=== PATIENT | female | born 1940 | race Hispanic/Latino ===

== ENCOUNTER → 2018-05-13 | Outpatient (CLI) | payer OTHER ==
[~2018-05-13] MED LIST: ASPI-1012 PO; CETI10CA5 PO; DICL50TA9 PO; FLUO-126 PO; LEVO88TA7 PO; LORA0.5T2 PO; METF-444 PO; METO50TA18 PO; MYRBETRIQ PO; ROSU10TA27 PO
== END | disposition home or self-care (01) ==
LOC: RAH 15:54
PROVIDERS: ATTEND Physical Medicine & Rehabilitation
DX: M17.12 Unilateral primary osteoarthritis, left knee (principal)
CPT/HCPCS: 73562

== ENCOUNTER → 2018-06-06 | Outpatient (CLI) | payer OTHER | END | disposition home or self-care (01) | LOC: RAH 13:53 | PROVIDERS: ATTEND Physical Medicine & Rehabilitation | DX: M25.462 Effusion, left knee (principal); M71.22 Synovial cyst of popliteal space [Baker], left knee | CPT/HCPCS: 73721 ==

== ENCOUNTER → 2018-06-19 | Outpatient (CLI) | payer OTHER | END | disposition home or self-care (01) | LOC: RAH 14:36 | PROVIDERS: ATTEND Physical Medicine & Rehabilitation | DX: R60.0 Localized edema (principal); E11.9 Type 2 diabetes mellitus without complications | CPT/HCPCS: 93971 ==

== ENCOUNTER 2018-10-20 14:35 | Emergency (ER) | payer OTHER ==
[2018-10-20] MEDS ORDERED: LIDOCAINE HCL 1% 20 ML VIAL ONE (15:01)
[2018-10-20] MEDS ORDERED: TETANUS/DIPHTHERIA TOXOID [ADULT] 0.5 ML VIAL IM ONE (15:27)
== END 2018-10-20 15:49 | disposition home or self-care (01) ==
LOC: EDH 14:35
DX: S61.012A Laceration without foreign body of left thumb without damage to nail, initial encounter (principal); E11.9 Type 2 diabetes mellitus without complications; I10 Essential (primary) hypertension; E07.9 Disorder of thyroid, unspecified; Z90.710 Acquired absence of both cervix and uterus; Z98.890 Other specified postprocedural states; W26.0XXA Contact with knife, initial encounter; Y93.G3 Activity, cooking and baking; Y92.098 Other place in other non-institutional residence as the place of occurrence of the external cause; Y99.8 Other external cause status
CPT/HCPCS: 12001; 90471; 90714

== ENCOUNTER → 2019-02-26 | Outpatient (CLI) | payer OTHER ==
[~2019-02-26] MED LIST changes: -ROSU10TA27 PO; +ROSU10TA28 PO
== END | disposition home or self-care (01) ==
LOC: RAH 09:43
PROVIDERS: ATTEND Internal Medicine
DX: K21.9 Gastro-esophageal reflux disease without esophagitis (principal); K44.9 Diaphragmatic hernia without obstruction or gangrene; K22.4 Dyskinesia of esophagus
CPT/HCPCS: 74240

== ENCOUNTER → 2019-04-02 | Outpatient (CLI) | payer OTHER | END | disposition home or self-care (01) | LOC: RAH 14:08 | PROVIDERS: ATTEND Physical Medicine & Rehabilitation | DX: M47.26 Other spondylosis with radiculopathy, lumbar region (principal); M48.061 Spinal stenosis, lumbar region without neurogenic claudication | CPT/HCPCS: 72131 ==

== ENCOUNTER → 2019-07-28 | Outpatient (CLI) | payer OTHER ==
[~2019-07-28] MED LIST changes: -FLUO-126 PO; +FLUO20CA34 PO
== END | disposition home or self-care (01) ==
LOC: RAH 10:00
PROVIDERS: ATTEND Physical Medicine & Rehabilitation
DX: M47.812 Spondylosis without myelopathy or radiculopathy, cervical region (principal); M25.78 Osteophyte, vertebrae; M48.02 Spinal stenosis, cervical region
CPT/HCPCS: 72125

== ENCOUNTER → 2020-04-06 | Outpatient (CLI) | payer OTHER ==
[~2020-04-06] MED LIST changes: -FLUO20CA34 PO; +FLUO20CA35 PO; +SINCALIDE 5 MCG ML VIAL IV ONE
== END | disposition home or self-care (01) ==
LOC: RAH 11:26
PROVIDERS: ATTEND Internal Medicine
DX: R10.10 Upper abdominal pain, unspecified (principal); R10.9 Unspecified abdominal pain; R14.0 Abdominal distension (gaseous)
CPT/HCPCS: 78227; A9537; J2805

== ENCOUNTER 2021-06-20 13:34 | Emergency (ER) | payer MEDICARE ==
[~2021-06-20] VITALS: Ht 160 cm; Wt 113.4 kg
[~2021-06-20 13:34] MED LIST changes: -FLUO20CA35 PO; +FLUO20CA36 PO; -SINCALIDE 5 MCG ML VIAL IV ONE
[2021-06-20 14:22] LABS: APPEARANCE,URINE Clear (CLEAR); BILIRUBIN,URINE Negative (NEGATIVE); COLOR,URINE Yellow (YELLOW); GLUCOSE, URINE (UA) Negative (NEGATIVE); KETONES,URINE Negative (NEGATIVE); LEUKOCYTE ESTERASE ,URINE Moderate (NEGATIVE); NITRATE,URINE Negative (NEGATIVE); OCCULT BLOOD,URINE Negative (NEGATIVE); PROTEIN,URINE Negative (NEGATIVE); UROBILINOGEN,URINE 0.2 mg/dL (0.2-1.0)
[2021-06-20 14:27] LABS: BASOPHILS % (AUTO) 1.1 % (0.0-5.0); EOSINOPHILS % (AUTO) 1.5 % (0.0-8.0); HEMATOCRIT 41.6 % (36-48); MEAN CORPUSCULAR HEMOGLOBIN 29.7 pg (27.0-33.0); MEAN CORPUSCULAR HGB CONC 33.4 g/dL (32.0-36.0); MEAN CORPUSCULAR VOLUME 88.9 fL (79-99); MONOCYTES % (AUTO) 10.4 % (3.0-13.0); NEUTROPHILS % (AUTO) 58.7 % (40.0-77.0); PLATELET COUNT (AUTO) 246 K/uL (130-400); RED BLOOD CELL COUNT(AUTO) 4.68 MIL/uL (4.00-5.50); RED CELL DISTRIBUTION WIDTH 14.4 % (11.0-15.5); WHITE BLOOD COUNT (AUTO) 7.3 K/uL (4.8-10.8)
[2021-06-20] MEDS ORDERED: ASPIRIN 325MG TAB PO ONE (14:30)
[2021-06-20 14:36] LABS: CREATININE 0.8 mg/dL (0.5-1.5)
[2021-06-20 14:40] LABS: ALBUMIN 3.9 g/dL (3.5-5.0); BILIRUBIN,TOTAL 0.5 mg/dL (0.2-1.0); TOTAL PROTEIN, SERUM 7.5 g/dL (6.0-8.3)
[2021-06-20 14:44] LABS: BACTERIA,URINE Few /HPF (None Seen); RBC,URINE 0-1 /HPF (0-1); SQUAMOUS EPITHELIAL CELL,UR Few /HPF (0-2)
[2021-06-20 14:45] LABS: TRANSITIONAL EPI CELLS,URINE Rare /HPF (None Seen)
[2021-06-20] MEDS ORDERED: LORA0.5T83 PO (16:00)
[2021-06-20] MEDS ORDERED: MACR100 PO (16:04)
[2021-06-20 16:14] VITALS: BP 134/50
== END 2021-06-20 16:36 | disposition home or self-care (01) ==
LOC: EDH 13:34
DX: F41.9 Anxiety disorder, unspecified (principal); N39.0 Urinary tract infection, site not specified; R06.00 Dyspnea, unspecified; I10 Essential (primary) hypertension; E03.9 Hypothyroidism, unspecified; Z79.82 Long term (current) use of aspirin; Z79.899 Other long term (current) drug therapy; Z90.710 Acquired absence of both cervix and uterus
CPT/HCPCS: 36415; 71045; 80053; 81001; 83735; 83880; 84443; 84484; 85025; 87077; 87088; 87186; 93005

== ENCOUNTER → 2022-01-03 | Outpatient (CLI) | payer MEDICARE ==
[~2022-01-03] MED LIST changes: +AEC81 PO; +ALBU0.63 IH; -ASPI-1012 PO; +BUDE10.2 IH; -CETI10CA5 PO; +CLOP75TA14 PO; +CYAN250010 PO; -DICL50TA9 PO; -FLUO20CA36 PO; +FLUT15.845 NS; +LEVO150 PO; -LEVO88TA7 PO; -LORA0.5T2 PO; +LORA10TA7 PO; +LOSA25TA41 PO; +MULT-1367 PO; +MV-M1TAB20 PO; -MYRBETRIQ PO; +PANT40TA54 PO; -ROSU10TA28 PO; +ROSU5TAB12 PO; +VITA1CAP PO
== END | disposition home or self-care (01) ==
LOC: SHCH 11:27
PROVIDERS: ATTEND Internal Medicine Cardiovascular Disease
DX: I65.23 Occlusion and stenosis of bilateral carotid arteries (principal)
CPT/HCPCS: 93880

== ENCOUNTER 2022-05-22 21:54 | Emergency (ER) | payer MEDICARE ==
[~2022-05-22 21:54] MED LIST changes: +CLOP-31 PO; -CLOP75TA14 PO
[2022-05-22] MEDS ORDERED: DIAZEPAM 2 MG TAB PO ONE (23:00)
[2022-05-22] MEDS ORDERED: MORPHINE 4 MG SYG IVP ONE (23:00)
[2022-05-22 23:21] LABS: BASOPHILS % (AUTO) 0.8 % (0.0-5.0); EOSINOPHILS % (AUTO) 0.1 % (0.0-8.0); HEMATOCRIT 40.2 % (36-48); LYMPHOCYTES % (AUTO) 12.6 % (21.0-51.0); MEAN CORPUSCULAR HEMOGLOBIN 29.4 pg (27.0-33.0); MEAN CORPUSCULAR HGB CONC 33.8 g/dL (32.0-36.0); NEUTROPHILS % (AUTO) 84.2 % (40.0-77.0); PLATELET COUNT (AUTO) 303 K/uL (130-400); RED BLOOD CELL COUNT(AUTO) 4.62 MIL/uL (4.00-5.50); RED CELL DISTRIBUTION WIDTH 13.3 % (11.0-15.5); WHITE BLOOD COUNT (AUTO) 8.8 K/uL (4.8-10.8)
[2022-05-22 23:29] LABS: CREATININE 0.9 mg/dL (0.5-1.5); POTASSIUM 3.8 mmol/L (3.5-5.1)
[2022-05-22 23:34] LABS: ALBUMIN 3.8 g/dL (3.5-5.0); TOTAL PROTEIN, SERUM 7.9 g/dL (6.0-8.3)
[2022-05-23] MEDS ORDERED: LIDOCAINE 5% TOPICAL PATCH TP ONE (02:30)
[2022-05-23] MEDS ORDERED: KETOROLAC 15MG/ML VIAL (15MG/ML) IV ONE (02:30)
[2022-05-23 03:48] VITALS: BP 136/81
[2022-05-23] MEDS ORDERED: DIAZ2TAB PO (04:36)
[2022-05-23] MEDS ORDERED: ACET-2079 PO (04:36)
== END 2022-05-23 04:50 | disposition home or self-care (01) ==
LOC: EDH 21:54
DX: S33.6XXA Sprain of sacroiliac joint, initial encounter (principal); M25.552 Pain in left hip; E03.9 Hypothyroidism, unspecified; E11.9 Type 2 diabetes mellitus without complications; E78.00 Pure hypercholesterolemia, unspecified; I10 Essential (primary) hypertension; Z79.51 Long term (current) use of inhaled steroids; Z79.82 Long term (current) use of aspirin; Z79.84 Long term (current) use of oral hypoglycemic drugs; Z88.8 Allergy status to other drugs, medicaments and biological substances; X58.XXXA Exposure to other specified factors, initial encounter; Y93.89 Activity, other specified; Y92.89 Other specified places as the place of occurrence of the external cause; Y99.8 Other external cause status
CPT/HCPCS: 36415; 72192; 73501; 80053; 85025; 96374; 96375; J1885; J2270

== ENCOUNTER → 2022-10-05 | Outpatient (CLI) | payer MEDICARE ==
[~2022-10-05] MED LIST changes: +ACET-2079 PO; +DIAZ2TAB PO
== END | disposition home or self-care (01) ==
LOC: RAH 15:54
PROVIDERS: ATTEND Physician Assistant
DX: M47.817 Spondylosis without myelopathy or radiculopathy, lumbosacral region (principal); M17.0 Bilateral primary osteoarthritis of knee; M48.061 Spinal stenosis, lumbar region without neurogenic claudication; M25.78 Osteophyte, vertebrae; M25.752 Osteophyte, left hip
CPT/HCPCS: 72110; 73502

== ENCOUNTER → 2023-04-03 | Outpatient (CLI) | payer MEDICARE ==
[2023-04-03 16:21] LABS: CREATININE 0.8 mg/dL (0.5-1.5); POTASSIUM 4.6 mmol/L (3.5-5.1)
== END | disposition home or self-care (01) ==
LOC: LAB 11:59
PROVIDERS: ATTEND Internal Medicine Cardiovascular Disease
DX: I10 Essential (primary) hypertension (principal); I25.10 Atherosclerotic heart disease of native coronary artery without angina pectoris
CPT/HCPCS: 36415; 80048

== ENCOUNTER → 2023-04-05 | Outpatient (CLI) | payer MEDICARE ==
[~2023-04-05] MED LIST changes: +IOHEXOL 350 MG/ML 100ML INFUS..BTL IV ONE; +METOPROLOL TARTRATE 1 MG/ML 5ML VIAL IV ONE
== END | disposition home or self-care (01) ==
LOC: RAH 10:19
PROVIDERS: ATTEND Internal Medicine Cardiovascular Disease
DX: I25.10 Atherosclerotic heart disease of native coronary artery without angina pectoris (principal); I10 Essential (primary) hypertension; M47.815 Spondylosis without myelopathy or radiculopathy, thoracolumbar region; J84.10 Pulmonary fibrosis, unspecified
CPT/HCPCS: 75574; J3490; Q9967

== ENCOUNTER 2023-06-18 06:04 | Day surgery (SDC) | payer MEDICARE ==
[2023-06-13 12:43] LABS: BASOPHILS # (AUTO) 0.09 K/uL (0.00-0.20); BASOPHILS % (AUTO) 1.4 % (0.0-5.0); EOSINOPHILS # (AUTO) 0.15 K/uL (0.00-0.70); EOSINOPHILS % (AUTO) 2.3 % (0.0-8.0); HEMATOCRIT 41.8 % (36-48); IMMATURE GRANULOCYTE ABSOLUTE 0.03 K/uL (0-1); LYMPHOCYTES # (AUTO) 1.8 K/uL (1.0-4.8); LYMPHOCYTES % (AUTO) 27.8 % (21.0-51.0); MEAN CORPUSCULAR HEMOGLOBIN 30.7 pg (27.0-33.0); MEAN CORPUSCULAR HGB CONC 32.8 g/dL (32.0-36.0); MEAN CORPUSCULAR VOLUME 93.7 fL (79-99); MONOCYTES # (AUTO) 0.5 K/uL (0.1-1.0); MONOCYTES % (AUTO) 7.3 % (3.0-13.0); NEUTROPHILS % (AUTO) 60.7 % (40.0-77.0); PLATELET COUNT (AUTO) 240 K/uL (130-400); RED BLOOD CELL COUNT(AUTO) 4.46 MIL/uL (4.00-5.50); RED CELL DISTRIBUTION WIDTH 14.4 % (11.0-15.5); WHITE BLOOD COUNT (AUTO) 6.6 K/uL (4.8-10.8)
[2023-06-13 12:45] VITALS: BP 134/61; PULSE 61; RESP 18
[2023-06-13 12:53] LABS: INR 0.94 (0.85-1.15); PROTHROMBIN TIME 10.9 SEC (9.6-11.6)
[2023-06-13 12:55] LABS: PARTIAL THROMBOPLASTIN TIME 27.1 SEC (26.3-35.5)
[2023-06-13 12:56] LABS: CREATININE 0.8 mg/dL (0.5-1.5); POTASSIUM 4.4 mmol/L (3.5-5.1)
[2023-06-13 13:14] LABS: B-TYPE NATRIURETIC PEPTIDE 73 pg/mL (0-100)
[2023-06-13 13:32] LABS: APPEARANCE,URINE CLEAR (CLEAR); BILIRUBIN,URINE NEGATIVE (NEGATIVE); COLOR,URINE LIGHT-YELLOW (YELLOW); GLUCOSE, URINE (UA) NEGATIVE (NEGATIVE); KETONES,URINE NEGATIVE (NEGATIVE); LEUKOCYTE ESTERASE ,URINE 25 Leu/uL (NEGATIVE); NITRATE,URINE NEGATIVE (NEGATIVE); OCCULT BLOOD,URINE NEGATIVE (NEGATIVE); PH,URINE 5.5 (5.0-8.0); PROTEIN,URINE NEGATIVE (NEGATIVE); UROBILINOGEN,URINE 0.2 mg/dL (0.2-1.0)
[2023-06-13 13:37] LABS: ADD UA MICROSCOPIC YES
[2023-06-13 13:38] LABS: BACTERIA,URINE MANY /HPF (None Seen); RBC,URINE 0-1 /HPF (0-1); SQUAMOUS EPITHELIAL CELL,UR RARE /HPF (0-2)
[~2023-06-18] VITALS: Ht 160 cm; Wt 111.4 kg
[2023-06-18] VITALS (9 sets, daily range): BP systolic 146–167; BP diastolic 70–82; PULSE 54–70; RESP 13–18
[~2023-06-18 06:04] MED LIST changes: -ACET-2079 PO; -ALBU0.63 IH; +ALBU18HF7 IH; -BUDE10.2 IH; -CLOP-31 PO; -CYAN250010 PO; -DIAZ2TAB PO; -FLUT15.845 NS; -IOHEXOL 350 MG/ML 100ML INFUS..BTL IV ONE; +ISOS30TA92 PO; +LEVO100C4 PO; -LEVO150 PO; -LORA10TA7 PO; +MECL-226 PO; -METF-444 PO; -METOPROLOL TARTRATE 1 MG/ML 5ML VIAL IV ONE; -MULT-1367 PO; +ONDA4TAB10 PO; -ROSU5TAB12 PO; +SEMA0.258 SQ; -VITA1CAP PO; +VITAMIN B12 PO
[2023-06-18] MEDS ORDERED: 0.9%NACL 1000ML 1,000 ML IV ONE (06:32)
[2023-06-18] MEDS ORDERED: SODIUM BICARB 50MEQ 50ML VIAL 50 ML ONE (08:25)
[2023-06-18] MEDS ORDERED: LIDOCAINE HCL 400MG/20ML VIAL ONE (08:25)
[2023-06-18] MEDS ORDERED: HEPARIN 10,000 UNIT/10ML (1,000 UNIT/ML) VIAL ONE ×2 (08:26→11:05)
[2023-06-18] MEDS ORDERED: IOHEXOL 350 MG/ML 100ML INFUS..BTL IV ONE (08:26)
[2023-06-18] MEDS ORDERED: MEPERIDINE-PF 25 MG/ML SYG ONE ×3 (08:26→10:17)
[2023-06-18] MEDS ORDERED: MIDAZOLAM HCL 1 MG/ML 2ML VIAL ONE ×3 (08:26→10:17)
[2023-06-18] MEDS ORDERED: NICARDIPINE 25MG INJ IV ONE (08:26)
[2023-06-18] MEDS ORDERED: TICAGRELOR 90 MG TABLET ONE (11:50)
[2023-06-18] MEDS ORDERED: 0.9%NACL 1000ML 1,000 ML IV SCH (12:00)
[2023-06-18] MEDS ORDERED: DEXTROSE 50%-WATER 50 ML DISP.SYRIN IV PRN (12:00)
[2023-06-18] MEDS ORDERED: GLUCAGON 1MG KIT 1 MG ML IM PRN (12:00)
[2023-06-18] MEDS ORDERED: ACETAMINOPHEN 500 MG TABLET ONE (15:15)
[2023-06-18] MEDS ORDERED: ACETAMINOPHEN 500 MG TABLET PO ONE (15:30)
[2023-06-18] MEDS ORDERED: INSULIN HUMULIN R 100 UNIT/ML 3ML SQ SCH (16:30)
== END 2023-06-18 16:30 | disposition home or self-care (01) ==
LOC: DAH 06:04
PROVIDERS: ATTEND Internal Medicine Cardiovascular Disease
DX: I25.119 Atherosclerotic heart disease of native coronary artery with unspecified angina pectoris (principal); I10 Essential (primary) hypertension; F41.9 Anxiety disorder, unspecified; K21.9 Gastro-esophageal reflux disease without esophagitis; E03.9 Hypothyroidism, unspecified; E66.9 Obesity, unspecified; G47.00 Insomnia, unspecified; Z79.01 Long term (current) use of anticoagulants; Z79.899 Other long term (current) drug therapy; Z79.82 Long term (current) use of aspirin; Z90.710 Acquired absence of both cervix and uterus; Z98.890 Other specified postprocedural states; Z95.5 Presence of coronary angioplasty implant and graft; Z82.49 Family history of ischemic heart disease and other diseases of the circulatory system; Z68.41 Body mass index [BMI] 40.0-44.9, adult
CPT/HCPCS: 80048; 83880; 85025; 85610; 85730; 87077; 87088; 87186; 81001; 36415; 71045; 93005; 93458; 96360; 96361; 93571; 85347; 82948 ×2; C9600 ×2; Q9965 ×2; C1769 ×6; C1887 ×2; C1725 ×5; C1874 ×3; A4649; C1894; J3490 ×3; J7030; J1644 ×4; J2250 ×3; J2175 ×3; Q9967; A4215; A4222; A4221; A4663; A4216; A4606; C9601; A4223 ×3; 99156; 99157

== ENCOUNTER → 2024-02-25 | Outpatient (CLI) | payer MEDICARE ==
[~2024-02-25] MED LIST changes: +ONDA-243 PO; -ONDA4TAB10 PO
[2024-02-25 12:57] LABS: BASOPHILS # (AUTO) 0.08 K/uL (0.00-0.20); BASOPHILS % (AUTO) 1.4 % (0.0-5.0); EOSINOPHILS % (AUTO) 3.4 % (0.0-8.0); HEMATOCRIT 44.2 % (36-48); HEMOGLOBIN A1C 6.1 % (4.0-6.0); IMMATURE GRANULOCYTE ABSOLUTE 0.01 K/uL (0-1); LYMPHOCYTES # (AUTO) 1.4 K/uL (1.0-4.8); LYMPHOCYTES % (AUTO) 23.1 % (21.0-51.0); MEAN CORPUSCULAR HEMOGLOBIN 30.1 pg (27.0-33.0); MEAN CORPUSCULAR HGB CONC 32.1 g/dL (32.0-36.0); MEAN CORPUSCULAR VOLUME 93.8 fL (79-99); MONOCYTES # (AUTO) 0.4 K/uL (0.1-1.0); MONOCYTES % (AUTO) 7.5 % (3.0-13.0); NEUTROPHILS # (AUTO) 3.8 K/uL (1.8-7.7); NEUTROPHILS % (AUTO) 64.4 % (40.0-77.0); PLATELET COUNT (AUTO) 262 K/uL (130-400); RED BLOOD CELL COUNT(AUTO) 4.71 MIL/uL (4.00-5.50); RED CELL DISTRIBUTION WIDTH 13.8 % (11.0-15.5); WHITE BLOOD COUNT (AUTO) 5.8 K/uL (4.8-10.8)
[2024-02-25 12:59] LABS: APPEARANCE,URINE CLEAR (CLEAR); BILIRUBIN,URINE NEGATIVE (NEGATIVE); COLOR,URINE LIGHT-YELLOW (YELLOW); GLUCOSE, URINE (UA) NEGATIVE (NEGATIVE); KETONES,URINE NEGATIVE (NEGATIVE); LEUKOCYTE ESTERASE ,URINE NEGATIVE Leu/uL (NEGATIVE); NITRATE,URINE NEGATIVE (NEGATIVE); OCCULT BLOOD,URINE NEGATIVE (NEGATIVE); PH,URINE 5.5 (5.0-8.0); PROTEIN,URINE NEGATIVE (NEGATIVE); UROBILINOGEN,URINE 0.2 mg/dL (0.2-1.0)
[2024-02-25 13:26] LABS: ADD UA MICROSCOPIC NO; B-TYPE NATRIURETIC PEPTIDE 117 pg/mL (0-100)
[2024-02-25 13:32] LABS: ALBUMIN 3.7 g/dL (3.5-5.0); BILIRUBIN,TOTAL 0.6 mg/dL (0.2-1.0); CREATININE 0.8 mg/dL (0.5-1.0); MAGNESIUM 1.6 mg/dL (1.80-2.40); POTASSIUM 4.4 mmol/L (3.5-5.1); T4 (THYROXINE) 10.5 ug/dL (4.7-13.3); THYROID STIMULATING HORMONE 0.03 uIU/mL (0.36-3.74)
[2024-02-28 01:10] LABS: HERPES SIMPLEX VIRUS-1 BY PCR Negative (Negative); HERPES SIMPLEX VIRUS-2 BY PCR Negative (Negative)
== END | disposition home or self-care (01) ==
LOC: LAB 10:23
PROVIDERS: ATTEND Internal Medicine Cardiovascular Disease
DX: E03.9 Hypothyroidism, unspecified (principal); E55.9 Vitamin D deficiency, unspecified; E78.5 Hyperlipidemia, unspecified; E66.9 Obesity, unspecified; I10 Essential (primary) hypertension; Z79.899 Other long term (current) drug therapy
CPT/HCPCS: 36415; 80053; 80061; 81003; 82306; 82607; 83036; 83735; 83880; 84436; 84443; 84479; 85025; 87086; 87529

== ENCOUNTER → 2024-04-07 | Outpatient (CLI) | payer MEDICARE | END | disposition home or self-care (01) | LOC: RAH 15:13 | PROVIDERS: ATTEND Physical Medicine & Rehabilitation | DX: M16.12 Unilateral primary osteoarthritis, left hip (principal); M25.852 Other specified joint disorders, left hip; M54.12 Radiculopathy, cervical region; Z96.641 Presence of right artificial hip joint | CPT/HCPCS: 73502 ==

== ENCOUNTER 2024-11-12 14:19 | Emergency (ER) | payer MEDICARE ==
[~2024-11-12] VITALS: Ht 160 cm; Wt 104.8 kg
[~2024-11-12 14:19] MED LIST changes: -LEVO100C4 PO; +LEVO100C5 PO
[2024-11-12 14:23] VITALS: BP 130/90; PULSE 78; RESP 16; TEMP 98.4
--- NOTE | 2024-11-12 16:06 | ERN ---
General Chief Complaint: Rib Pain Stated Complaint: RIB PAIN AFTER FALL 5 DAYS AGO Time Seen by MD: 14:30 Source: patient History of Present Illness Initial Comments Patient is a an 84-year-old female coming in complaining of bilateral chest discomfort. She states that five days ago she was walking carrying a coffee and one hand and plate of food in the left hand she tripped through the coffee and completed food fell forward and hit herself in the chest. She states that she followed up with her tele Dr. was told to take some anti-inflammatories. States that the pain is still present in his here for further evaluation. No shortness of breath. Allergies: Coded Allergies: No Known Drug Allergies (Verified Allergy, Unknown, 02/16/16) gabapentin (Unverified Allergy, Unknown, 05/22/22) Home Meds Reported Medications Semaglutide (Ozempic) 0.25 Mg/0.368 Ml Pen.injctr, 0.5 MG SQ QWEEK 06/13/23 Albuterol Sulfate (Ventolin Hfa) 90 Mcg Hfa.aer.ad, 1 PUFF IH AD PRN for SHORTNESS OF BREATH/WHEEZING, INHALER 06/13/23 Ondansetron (Ondansetron Odt) 4 Mg Tab.rapdis, 4 MG PO DAILY PRN for NAUSEA/VOMITING, TAB 06/13/23 Meclizine HCl (Meclizine HCl) 12.5 Mg Tablet, 12.5 MG PO DAILY, TAB 06/13/23 Levothyroxine Sodium (Levothyroxine) 100 Mcg Capsule, 100 MCG PO DAILY, CAP 06/13/23 [Vitamin B12] No Conflict Check, 2000 MCG PO DAILY 06/13/23 Isosorbide Mononitrate (Isosorbide Mononitrate ER) 30 Mg Tab.er.24h, 30 MG PO DAILY, TAB 06/13/23 Mv-Mn/Iron/FA/Herbal Cmplx#190 (Vitamin D3 Complete Caplet) 1 Each Tablet, 1 EACH PO DAILY, TAB 10/06/21 Aspirin (ASPIRIN 81 MG ECTAB) 81 Mg Ectab, 81 MG PO DAILY, TAB.EC 10/06/21 Pantoprazole Sodium (Pantoprazole Sodium) 40 Mg Tablet.dr, 40 MG PO DAILY, TAB 10/06/21 Losartan Potassium (Losartan Potassium) 25 Mg Tablet, 25 MG PO DAILY, TAB 08/22/21 Metoprolol Tartrate (Metoprolol Tartrate) 50 Mg Tablet, 50 MG PO BID, TAB 02/16/16 Past Medical History Past Medical History: Arthritis, Diabetes-Type II, High Cholesterol, Hyp ertension, Hypothyroid Medical History Other: Pulmonary fibrosis, HEMANGIOMA Past Surgical History: Hysterectomy Surgical History Other: RIGHT HIP SURGERY Social History Social History: Negative ROS Dictation CONSTITUTIONAL: No chills, no fever, no weakness, no diaphoresis, no malaise. HEAD/FACE: No signs of trauma. EENT: No eye pain, no blurred vision, no tearing, no double vision, no ear pain, no ear discharge, no nose pain, no nasal congestion, no throat pain, no throat swelling, no mouth pain. RESPIRATORY: No cough, no orthopnea, no SOB, no stridor, no wheezing. CARDIOVASCULAR: chest pain, no edema, no palpitations, no syncope. GASTROINTESTINAL/ABDOMINAL: No abdominal pain, no constipation, no diarrhea, no nausea, no vomiting. GENITOURINARY: No abnormal discharge, no dysuria, no frequent urination, no hematuria. No complaints of pain in the genitals. MUSCULOSKELETAL: No back pain, no gout, no joint pain, no joint swelling, no muscle pain, no muscle stiffness, no neck pain. INTEGUMENTARY: No change in color, no change in hair/nails, no dryness, no lesion, no lumps, no rash. NEUROLOGICAL/PSYCH: No anxiety, not depressed, no emotional problem, no headache, no numbness, no pre-existing deficit, no history of seizures, no tremors, no weakness. HEMATOLOGIC/LYMPHATIC: Not anemic, no history of blood clots, no apparent bleeding, no bruising, glands not swollen. All Systems Negative, Except as Noted. Physical Exam Physical Exam Dictation VITAL SIGNS: Reviewed. GENERAL APPEARANCE: Alert, oriented x3, no acute distress, obese. HEAD AND FACE: Non-traumatic. EYES: PERRL, pink conjunctivas, eyelid no trauma, anterior chamber clear. EARS: Pinnas intact and no signs of trauma or erythema. Ear canals clear and no discharge. TMs no erythema. NOSE: No discharge, no bleeding. OROPHARYNX: Mouth normal, teeth no caries, tongue pink. Pharynx clear, no erythema. Tonsils no exudates, no abscesses noted. Mucous membrane moist. NECK: Supple, non-tender, no thyromegaly, no masses, no JVD, no bruits. BREAST: Deferred. CHEST: tenderness, no crepitus, no paradoxical movement, no retractions. LUNGS: Clear, well-ventilated, symmetric, no rales, no wheezing, no rhonchi, no stridor, good breath sounds bilaterally. HEART: Regular rate, regular rhythm, no murmur, no gallops. VASCULAR: No peripheral edema. ABDOMEN: Soft, positive bowel sounds, nondistended, no guarding, nontender, no rebound, no masses no hepatomegaly, no splenomegaly, no Lewis's sign, no hernias. RECTAL: Deferred. GENITAL: Deferred. NEUROLOGICAL: Normal speech, gross motor function intact, gross sensory function intact. MUSCULOSKELETAL: Neck nontender, full range of motion, back nontender, full range of motion. EXTREMITIES: Nontender, full range of motion. SKIN: Color pink, dry, no turgor, no rash, no lacerations, no abrasions, no contusions. LYMPHATICS: Deferred. Results Laboratory and Microbiology Labs Reviewed?: Yes EKG/XRAY/US/CT/MRI X-RAY Comment Chest x-ray- no change compared to previous one performed on 06/13/2023 MDM MDM: Differential diagnosis: Fall, costochondritis, Rationale: Tests considered and ordered secondary to shared decision making include: Previous outside records reviewed: Old ER visits. Risk of complication and/or morbidity or mortality of patient management: None Patient is a 84-year-old female coming in to be evaluated for chest discomfort. Patient tripped five days ago landing on her chest. X-ray performed no change from 06/13/2023. Patient will be discharged in stable condition I did advised her appropriate follow up with PCP for ongoing management. ED Course Orders Procedure Category Date Status Time Chest 2vws RAD 11/12/24 Taken 15:11 Vital Signs Date Time Temp Pulse Resp B/P (MAP) Pulse Ox O2 Delivery O2 Flow Rate FiO2 11/12/24 14:23 98.4 78 16 130/90 96 Room Air 0 DX & DISP Disposition: Discharge Departure Impression: Primary Impression: Accident due to mechanical fall without injury Additional Impression: Costochondritis, acute Condition: Stable Scripts Acetaminophen (Tylenol Extra Strength) 500 Mg Tablet 1 TAB PO Q6HPRN PRN for pain or fever for 5 Days, #30 TAB 0 Refills Prov: DC MARINO MD 11/12/24 Additional Instructions: FOLLOW-UP WITH PRIMARY CARE PROVIDER IN 1 TO 2 DAYS. TAKE MEDICATIONS DIRECTED HERE IN THE EMERGENCY ROOM. OKAY TO CONTINUE HOME MEDICATIONS UNLESS OTHERWISE DISCUSSED DURING YOUR VISIT IN THE EMERGENCY ROOM TODAY. RETURN TO YOUR NEAREST EMERGENCY ROOM IF SYMPTOMS WORSEN OR IF THERE IS NO IMPROVEMENT. CALL 911 IF YOU NEED IMMEDIATE ASSISTANCE. TAKE TYLENOL [id number] NEEDED AND IF NO CONTRAINDICATIONS ARE PRESENT. INCREASE ORAL HYDRATION. A WOUND CULTURE OR URINE CULTURE WAS ORDERED HERE IN THE EMERGENCY ROOM DEPARTMENT PLEASE FOLLOW-UP WITH PRIMARY CARE PROVIDER AND ADVISE THEM TO GET REPEAT PORTS FROM OUR FACILITY. IF YOU HAD ANY NASRA WRAP/SPLINTS THAT WERE APPLIED HERE, PLEASE DO NOT REMOVE THEM UNTIL YOU SEE YOUR PRIMARY CARE OR SPECIALTY. Referrals: Referrals: DAYSI KNOX MD (PCP) Time of Disposition: 16:10 DC MARINO MD Nov 12, 2024 16:06
[2024-11-12] MEDS ORDERED: ACET-2743 PO (16:12)
--- NOTE | 2024-11-12 16:18 | HMCIMG ---
Exam Type: CHEST 2VWS Clinical Information: fall Comparison: None Findings: The lungs exam demonstrates interstitial markings prominence consistent with interstitial pulmonary fibrotic changes. There is no airspace disease to suggest pneumonia. The heart is normal in size. The bone examination shows no significant abnormalities. Impression: Interstitial pulmonary fibrotic changes. No airspace disease.
[2024-11-12] MEDS: traMADol HCL 50 MG TABLET PO ONE (16:31)
== END 2024-11-12 16:41 | disposition home or self-care (01) ==
LOC: EDH 14:19
DX: M94.0 Chondrocostal junction syndrome [Tietze] (principal); E03.9 Hypothyroidism, unspecified; E11.9 Type 2 diabetes mellitus without complications; E78.00 Pure hypercholesterolemia, unspecified; I10 Essential (primary) hypertension; J84.10 Pulmonary fibrosis, unspecified; M19.90 Unspecified osteoarthritis, unspecified site; Z79.82 Long term (current) use of aspirin; Z79.85 Long-term (current) use of injectable non-insulin antidiabetic drugs; Z79.890 Hormone replacement therapy; Z79.899 Other long term (current) drug therapy; Z88.8 Allergy status to other drugs, medicaments and biological substances; Z90.710 Acquired absence of both cervix and uterus; W01.0XXA Fall on same level from slipping, tripping and stumbling without subsequent striking against object, initial encounter; Y93.89 Activity, other specified; Y92.89 Other specified places as the place of occurrence of the external cause; Y99.8 Other external cause status
CPT/HCPCS: 71046; 99284

== ENCOUNTER → 2024-12-09 | Outpatient (CLI) | payer MEDICARE ==
[~2024-12-09] MED LIST changes: +ACET-2743 PO
[2024-12-09] MEDS: REGADENOSON 0.4 MG/5 ML PF SYG IVP ONE (15:20)
== END | disposition home or self-care (01) ==
LOC: SHCH 07:59
PROVIDERS: ATTEND Internal Medicine Cardiovascular Disease
DX: R07.9 Chest pain, unspecified (principal); R06.00 Dyspnea, unspecified; R05.9 Cough, unspecified
CPT/HCPCS: 78452; 93017; J2785; A9500 ×2

== ENCOUNTER 2025-05-15 09:31 | Day surgery (SDC) | payer MEDICARE ==
[2025-05-13 12:33] VITALS: BP 157/81; PULSE 73; RESP 18; TEMP 97.3
[2025-05-13 12:35] LABS: IMMATURE GRANULOCYTE ABSOLUTE 0.02 K/uL (0-1); NUCLEATED RED BLOOD CELLS 0.0 % (0.0-0.19); PLATELET COUNT (AUTO) 274 K/uL (130-400); RED BLOOD CELL COUNT(AUTO) 4.60 MIL/uL (4.00-5.50); RED CELL DISTRIBUTION WIDTH 14.5 % (11.0-15.5); WHITE BLOOD COUNT (AUTO) 7.0 K/uL (4.8-10.8)
[2025-05-13 12:41] LABS: CREATININE 0.7 mg/dL (0.5-1.0); GLOMERULAR FILTR. RATE CALC 86.0 mL/min (>90); GLUCOSE,RANDOM 106.0 mg/dL (70-105); SODIUM SERUM 140.0 mmol/L (136-145); UREA NITROGEN, BLOOD 14.0 mg/dL (7-18)
[2025-05-13 12:46] LABS: APPEARANCE,URINE CLOUDY (CLEAR); GLUCOSE, URINE (UA) NEGATIVE (NEGATIVE); LEUKOCYTE ESTERASE ,URINE 500 Leu/uL (NEGATIVE); NITRATE,URINE 1+ (NEGATIVE); OCCULT BLOOD,URINE NEGATIVE (NEGATIVE)
[2025-05-13 12:51] LABS: ADD UA MICROSCOPIC YES
[2025-05-13 12:54] LABS: SQUAMOUS EPITHELIAL CELL,UR RARE /HPF (0-2)
[2025-05-13 13:02] LABS: INR 1.02 (0.85-1.15)
--- NOTE | 2025-05-13 14:02 | EKG ---
[facility] Test Date: 2025-05-13 Test Time: 12:20:36 Pat Name: YUNI PACHECO Department: [facility] Room: Gender: F Emergency Medical Dispatcher: [id number] : 1940 Requested By: Andrea DOTY Order Number: [id number] Reading MD: Elkin Estevez Measurements Intervals Rose Rate: 64 P: 10 IN: 195 QRS: 10 QRSD: 75 T: 27 QT: 401 QTc: 413 Interpretive Statements Sinus rhythm Low voltage, precordial leads Compared to ECG 06/13/2023 12:34:56 Low QRS voltage now present Electronically Signed On 05-13-2025 16:35:40 CDT by Elkin Estevez Please click the below link to view image of tracing.
--- NOTE | 2025-05-14 05:23 | HMCIMG ---
EXAM: CR Chest, 1 View. CLINICAL HISTORY: PRE-OP COMPARISON: None provided. FINDINGS: LUNGS: Bilateral interstitial opacities which may be due to infection or edema. No focal infiltrates. PLEURAL SPACES: No evidence of pleural effusion or pneumothorax. MEDIASTINUM: Cardiac size and mediastinal contours within normal limits. BONES: No aggressive appearing osseous lesion seen. IMPRESSION: Bilateral interstitial opacities which may be due to infection or edema. No focal infiltrates. /[place]
--- NOTE | 2025-05-14 13:30 | NUR ---
RE: LABS REPORTED URINE CX RESULTS TO DR DOTY. RECEIVED ORDERS FOR ANTIBIOTIC. CALLED [facility] AND SPOKE WITH MARSHA (PHARMACIST), ORDERED LEVAQUIN 500MG PO DAILY X 7 DAYS. CALLED PATIENT AND INSTRUCTED HER TO PARA EDUCATOR ANTIBIOTIC AND START TAKING TODAY FOR UTI. PATIENT VERBALIZED UNDERSTANDING.
--- NOTE | 2025-05-14 14:52 | NUR ---
RE: CXR REPORTED CXR RESULTS TO JENNY CARRINGTON NP. PATIENT HAS HX OF PULMONARY FIBROSIS. RECEIVED ORDERS FOR ABG'S BEFORE CATH PROCEDURE IN AM AND O2 VIA NASAL CANNULA NEEDED.
[2025-05-15] VITALS (13 sets, daily range): BP systolic 118–159; BP diastolic 55–94; PULSE 62–77; RESP 10–18; TEMP 97–97.6
[~2025-05-15] VITALS: Ht 157.5 cm; Wt 105.1 kg
[~2025-05-15 09:31] MED LIST changes: -ACET-2743 PO; +AZEL23SP2 NS; +CLOP75TA32 PO; -LOSA25TA41 PO; -MECL-226 PO; +METO-391 PO; -METO50TA18 PO; -MV-M1TAB20 PO; +ONDA-104 PO; -ONDA-243 PO; -PANT40TA54 PO; -SEMA0.258 SQ
--- NOTE | 2025-05-15 10:20 | NUR ---
DR. DOTY AWARE OF PT HAVING DIARRHEA V/O FOR LOMOTIL PO X 1
[2025-05-15] MEDS: DIPHENOXYLATE HCL/ATROPINE 2.5/0.025 MG TAB PO ONE (11:02)
[2025-05-15] MEDS ORDERED: IOHEXOL 350 MG/ML 100ML INFUS..BTL IV ONE (11:03)
[2025-05-15] MEDS ORDERED: HEParin-NS 1,000 UNIT/500 ML 1,000 ML IV ONE (11:04)
[2025-05-15] MEDS ORDERED: LIDOCAINE HCL 400MG/20ML VIAL ONE (11:04)
[2025-05-15] MEDS ORDERED: SODIUM BICARB 50MEQ 50ML VIAL 50 ML ONE (11:04)
[2025-05-15] MEDS ORDERED: NITROGLYCERIN 50MG VIAL ONE (11:04)
[2025-05-15] MEDS ORDERED: MIDAZOLAM HCL 1 MG/ML 2ML VIAL ONE ×3 (11:30→11:54)
[2025-05-15] MEDS ORDERED: 0.9%NACL 1000ML 1,000 ML IV SCH (12:30)
--- NOTE | 2025-05-15 12:40 | CCATH ---
PROCEDURE NOTE PROCEDURES: 1. Left heart catheterization. 2. Selective diagnostic right and left coronary arteriogram. 3. Conscious sedation for 30 minutes. INDICATIONS: 1. Recurrent angina. 2. Known history of coronary artery disease. 3. Status post multiple percutaneous interventions. 4. Abnormal Lexiscan. COMPLICATIONS: None. TOTAL CONTRAST: Approximately 40 mL. DESCRIPTION OF PROCEDURE: The patient was taken to the cardiac geophysical laboratory supervisor in stable condition after appropriate operative consents were signed. She was prepped and draped in the usual fashion. After conscious sedation was administered, the right radial artery region was infiltrated with 2% Xylocaine without epinephrine. A 6-Mohawk slender sheath was advanced in regular fashion with modified Seldinger technique after cannulation of the vessel. At this point, a TIG 4 catheter was advanced over an indwelling wire. This was positioned in the left ventricular cavity. Left ventricular end-diastolic pressure measurement was obtained. Ventriculography was deferred. The patient had preserved systolic function with noninvasive studies. Pullback revealed no aortic stenosis. At this point, we elected to proceed with cannulation of the right coronary artery, which was imaged in multiplane. This was a larger vessel that had stents extending all the way from the proximal one-third to the distal portion of the vessel. The stents were widely patent. The acute marginal was patent. The patient had PDA and branching of PLVB that were normal. At this point, a FL 3.5 diagnostic catheter was engaged in the ostium of the left main. Imaging was obtained in multiple planes. The left main was a moderately large vessel that was calcified and free of disease, bifurcated the LAD, the circumflex. The LAD was a moderately large vessel that had ostial and proximal to mid stents that were widely patent. The ostial and proximal most stent had approximately 30% in-stent restenosis. The diagonals were small and the mid LAD stent also had a 30% in-stent restenosis. The circ was a large vessel that gives us several marginal branches and ongoing circ. There were multiple stents in the circumflex, one in the proximal segment traversing the ostium of the first obtuse marginal, which was a large vessel. The obtuse marginal itself had two stents that were patent in the ostium and in the distal segment. The ongoing circ had a patent stent in the distal segment before the distal OM. The catheter was then engaged in the left ventricular cavity. Left ventricular end-diastolic pressure measurement was obtained. At this point, the procedure was completed, the patient tolerated well and left the cardiac geophysical laboratory supervisor in stable condition. At the end of the procedure, the catheter was withdrawn over an indwelling wire and a Radial band was applied. FINAL IMPRESSION: Coronary artery disease with patent LAD, circumflex, obtuse marginal, and RCA stents. PLAN: Medical management. TID: [id number] RECEIPT: [id number]
--- NOTE | 2025-05-15 14:55 | NUR ---
POST-MAILROOM COORDINATOR CHECKED VASC BAND FOR REMAINING AIR. 0MLS OF AIR. REMOVED VASC BAND. CLEANED SITE WITH CHOLRA-PREP, APPLIED 4X4 STERILE GAUZE, AND APPLIED 4X4 STERILE TEGADERM AND APPLIED COBAN TO SECURE DRESSING. NO ACTIVE BLEEDING OR DRAINAGE NOTED. NO REDNESS OR SWELLING NOTED. SITE SOFT TO TOUCH. PATIENT ABLE TO WIGGLE FINGERS.
--- NOTE | 2025-05-15 16:24 | NUR ---
HELD PRESSURE FOR 20 MINUTES WITH D-STAT. D-STAT APPLIED COBAN APPLIED. ACTIVE BLEEDING STOPPED. NO NEW ACTIVE BLEEDING OR DRAINAGE. MINIMAL RED DRAINAGE CIRCLED ON DRESSING. PATIENT AWAKE AND ORIENTED X4. PATIENT INSTRUCTED NOT TO BEND OR FLEX WRIST AND THE IMPORTANCE OF NO HEAVY LIFTING. BED LOW AND LOCKED. CALL LIGHT AT BEDSIDE.
--- NOTE | 2025-05-15 16:40 | NUR ---
report received report from courtney moulton lvn. steve roque feller operator notified of rt radial bleed. received orders to keep an additional hour before discharge. no active bleeding at this time.
--- NOTE | 2025-05-15 17:50 | NUR ---
d/c pt was given d/c instructions by courtney moulton lvn and I reinforced. pt taken out via w/c in no distress. rt radial free from bleeding and hematoma.
== END 2025-05-15 18:00 | disposition home or self-care (01) ==
LOC: DAH 09:31
PROVIDERS: ATTEND Internal Medicine Cardiovascular Disease
DX: I25.118 Atherosclerotic heart disease of native coronary artery with other forms of angina pectoris (principal); T82.855A Stenosis of coronary artery stent, initial encounter; R94.39 Abnormal result of other cardiovascular function study; I10 Essential (primary) hypertension; F41.9 Anxiety disorder, unspecified; M79.7 Fibromyalgia; E03.9 Hypothyroidism, unspecified; M54.12 Radiculopathy, cervical region; Y71.2 Prosthetic and other implants, materials and accessory cardiovascular devices associated with adverse incidents; Z95.5 Presence of coronary angioplasty implant and graft; Z90.710 Acquired absence of both cervix and uterus; Z79.82 Long term (current) use of aspirin; Z79.899 Other long term (current) drug therapy
CPT/HCPCS: 80048; 83880; 85025; 85610; 85730; 87086 ×2; 81001; 36415; 71045; 93005; 93458; 87186; 99156; 99157 ×2; C1769 ×2; A4649; C1894; J3010 ×2; J3490 ×4; J1644 ×2; J2250 ×3; Q9967; A4215; A4222; A4221; A4663; A4216; A4606; Q9965; A4223 ×3; 96360; 96361